=== PATIENT | male | born 1940 | race Caucasian/White ===

== ENCOUNTER 2020-11-14 21:21 | Inpatient (IN) | payer OTHER ==
[2020-11-14] MEDS ORDERED: ACETAMINOPHEN 500 MG TABLET (FP) PO ONE (21:59)
[2020-11-14 22:38] LABS: BASO % 0.1 % (0-2.0); EOS % 0.8 % (0-4.5); HEMATOCRIT 37.7 % (35.4-49); HEMOGLOBIN 12.7 GM/dL (11.7-16.9); LYMPH % 17.8 % (8-40); MCH 27.3 pg (25.7-33.7); MCHC 33.7 g/dl (32.0-35.9); MEAN CELL VOLUME 81.1 fl (80-96); MEAN PLT VOLUME 8.1 fl (7.5-11.1); MONO % 11.9 % (3.8-10.2); NEUT % 69.4 % (42.8-82.8); PLATELET COUNT 189 10^3/uL (134-434); RBC 4.65 M/mm3 (4.00-5.60); RDW 13.4 % (11.9-15.9); WHITE BLOOD COUNT 10.1 K/mm3 (4.0-10.0)
[2020-11-14] MEDS ORDERED: ACETAMINOPHEN 325 MG TABLET (FP) ONE (22:55)
[2020-11-14 22:56] LABS: PH,URINE 5.5 (5.0-8.0); URINE APPEARANCE CLEAR; URINE BILIRUBIN NEGATIVE (NEGATIVE); URINE COLOR YELLOW; URINE GLUCOSE (UA) NEGATIVE (NEGATIVE); URINE KETONE NEGATIVE (NEGATIVE); URINE LEUK ESTERASE NEGATIVE (NEGATIVE); URINE NITRITE NEGATIVE (NEGATIVE); URINE PROTEIN TRACE (NEGATIVE); URINE UROBILINOGEN 0.2 mg/dL (0.2-1.0)
[2020-11-14 22:59] LABS: CHLORIDE 107 mmol/L (98-107); SODIUM 138 mmol/L (136-145)
[2020-11-14 23:01] LABS: CALCIUM 9.4 mg/dL (8.5-10.1)
[2020-11-14 23:02] LABS: ALBUMIN 4.1 g/dl (3.4-5.0); ANION GAP 9 MMOL/L (8-16); BLOOD UREA NITROGEN 52.3 mg/dL (7-18); CO2 22 mmol/L (21-32); GLUCOSE,RANDOM 185 mg/dL (74-106)
[2020-11-14 23:05] LABS: CREATININE 2.2 mg/dL (0.55-1.3); SGOT/AST 28 U/L (15-37); SGPT/ALT 73 U/L (13-61)
[2020-11-14 23:07] LABS: BILIRUBIN,TOTAL 0.5 mg/dL (0.2-1); TOT PROT 7.6 g/dl (6.4-8.2)
[2020-11-14 23:08] LABS: ALK PHOS 145 U/L (45-117)
[2020-11-14] MEDS ORDERED: PIPERACILLIN/TAZOB 3.375 GM 3.375 GM in DEXTROSE 5%-WATER - 50 ML IVPB ONE (23:30)
[2020-11-14] MEDS ORDERED: SODIUM CHLORIDE 0.9% 500 ML INFUS.BAG IV ONE (23:30)
[2020-11-15] MEDS ORDERED: PIPERACILLIN/TAZOB 3.375 GM 3.375 GM/50 ML BAG IVPB ONE (00:19)
[2020-11-15] MEDS ORDERED: VANCOMYCIN 1 GRAM (PRE-DOCKED) 1,000 MG/250 ML BAG IVPB SCH (04:00)
[2020-11-15 04:04] LABS: URIC ACID 8.3 mg/dL (2.6-7.2)
[2020-11-15] MEDS: SODIUM CHLORIDE 1,000 ML IV SCH ×2 (04:35→23:58)
[2020-11-15] MEDS: PIPERACILLIN/TAZOB 2.25 GM 2.25 GM in DEXTROSE 5%-WATER - 50 ML IVPB SCH ×5 (05:05→16:05)
[2020-11-15] MEDS ORDERED: PIPERACILLIN/TAZOB 2.25 GM 2.25 GM/50 ML BAG IVPB ONE ×2 (05:35→13:46)
[2020-11-15 06:07] LABS: HEMATOCRIT 36.4 % (35.4-49); MCH 27.2 pg (25.7-33.7); MEAN CELL VOLUME 82.5 fl (80-96); MEAN PLT VOLUME 8.4 fl (7.5-11.1); PLATELET COUNT 177 10^3/uL (134-434); RBC 4.41 M/mm3 (4.00-5.60); RDW 13.4 % (11.9-15.9); WHITE BLOOD COUNT 8.1 K/mm3 (4.0-10.0)
[2020-11-15] MEDS ORDERED: HEPARIN NA (PORCINE) 5,000 UNITS/ML 1ML VIAL ONE ×3 (06:14→14:42)
[2020-11-15] MEDS: HEPARIN NA (PORCINE) 5,000 UNITS/ML 1ML VIAL SQ SCH ×2 (06:26→14:55)
[2020-11-15 06:30] LABS: CALCIUM 8.6 mg/dL (8.5-10.1)
[2020-11-15 06:31] LABS: ALBUMIN 3.5 g/dl (3.4-5.0); BLOOD UREA NITROGEN 42.1 mg/dL (7-18); MAGNESIUM 1.7 mg/dL (1.8-2.4)
[2020-11-15 06:34] LABS: CREATININE 2.1 mg/dL (0.55-1.3)
[2020-11-15] MEDS: INSULIN SLIDING SCALE (NOVOLOG) 1 VIAL SQ SCH ×4 (06:34→17:45)
[2020-11-15 06:35] LABS: BILIRUBIN,TOTAL 0.7 mg/dL (0.2-1)
[2020-11-15 06:36] LABS: TOT PROT 6.7 g/dl (6.4-8.2)
[2020-11-15] MEDS ORDERED: VANCOMYCIN 1 GM in D5W (PRE-DOCKED) 1,000 MG/250 ML IVPB SCH (10:00)
[2020-11-15] MEDS ORDERED: MAGNESIUM SULF 50% (8.12 MEQ/2 ML-1 GM VIAL) IVPB ONE (13:32)
[2020-11-15] MEDS ORDERED: MAGNESIUM SULFATE IN WATER 2 GM/50 ML IVPB IVPB ONE (13:46)
[2020-11-15] MEDS ORDERED: INSULIN SLIDING SCALE (NOVOLOG) 1 VIAL SQ ONE ×3 (13:58→19:00)
[2020-11-15] MEDS ORDERED: MAGNESIUM 1GM/D5W - 1 GM/100 ML IVPB IVPB ONE (14:37)
[2020-11-15] MEDS: AMPICILLIN NA/SULBACTAM NA 3 GM in SODIUM CHLORIDE 100 ML IVPB SCH (18:00)
[2020-11-16] MEDS: HEPARIN NA (PORCINE) 5,000 UNITS/ML 1ML VIAL SQ SCH ×4 (00:17→21:54)
[2020-11-16] MEDS: INSULIN (LEVEMIR) 100 UNITS/ML UNITS SQ SCH ×2 (00:18→21:59)
[2020-11-16] MEDS: INSULIN SLIDING SCALE (NOVOLOG) 1 VIAL SQ SCH ×5 (00:19→22:12)
[2020-11-16] MEDS ORDERED: INSULIN (NOVOLOG) ASPART 100 UNITS/ML 10ML VIAL ONE ×4 (00:24→21:36)
[2020-11-16] MEDS ORDERED: AMPICILLIN NA/SULBACTAM NA 3 GM VIAL ONE ×3 (01:36→18:06)
[2020-11-16] MEDS ORDERED: SODIUM CHLORIDE 100 ML IVPB ONE ×3 (01:37→18:06)
[2020-11-16] MEDS: AMPICILLIN NA/SULBACTAM NA 3 GM in SODIUM CHLORIDE 100 ML IVPB SCH ×3 (01:40→18:07)
[2020-11-16] MEDS: ACETAMINOPHEN 500 MG TABLET (FP) PO PRN ×3 (01:40→21:55)
[2020-11-16] MEDS ORDERED: PT OWN MED DRAWER 7, Y5N ONE ×2 (07:07→13:49)
[2020-11-16 08:12] LABS: CALCIUM 8.8 mg/dL (8.5-10.1)
[2020-11-16 08:13] LABS: ALBUMIN 3.3 g/dl (3.4-5.0); BLOOD UREA NITROGEN 38.8 mg/dL (7-18)
[2020-11-16 08:18] LABS: BILIRUBIN,TOTAL 0.7 mg/dL (0.2-1); TOT PROT 6.5 g/dl (6.4-8.2)
[2020-11-16] MEDS: amLODIPine BESYLATE 2.5 MG TABLET (FP) PO SCH (10:14)
[2020-11-16] MEDS: FUROSEMIDE 40 MG TABLET (FP) PO SCH (10:14)
[2020-11-16] MEDS: SODIUM CHLORIDE 1,000 ML IV SCH (10:14)
[2020-11-16] MEDS ORDERED: IRON SUCROSE INJECTION 200 MG in SODIUM CHLORIDE 90 ML IVPB ONE (10:17)
[2020-11-16 14:17] LABS: BASO % 0.2 % (0-2.0); EOS % 0.2 % (0-4.5); HEMOGLOBIN 11.9 GM/dL (11.7-16.9); LYMPH % 12.7 % (8-40); MCHC 33.1 g/dl (32.0-35.9); MEAN CELL VOLUME 81.6 fl (80-96); MEAN PLT VOLUME 8.4 fl (7.5-11.1); MONO % 9.9 % (3.8-10.2); PLATELET COUNT 193 10^3/uL (134-434); RBC 4.41 M/mm3 (4.00-5.60); RDW 13.8 % (11.9-15.9); WHITE BLOOD COUNT 10.4 K/mm3 (4.0-10.0)
[2020-11-16 14:39] LABS: CALCIUM 8.6 mg/dL (8.5-10.1)
[2020-11-16 14:40] LABS: ALBUMIN 3.4 g/dl (3.4-5.0); BLOOD UREA NITROGEN 35.3 mg/dL (7-18); MAGNESIUM 1.9 mg/dL (1.8-2.4)
[2020-11-16 14:45] LABS: BILIRUBIN,TOTAL 0.7 mg/dL (0.2-1)
[2020-11-17] MEDS ORDERED: SODIUM CHLORIDE 100 ML IVPB ONE ×4 (02:53→17:58)
[2020-11-17] MEDS ORDERED: AMPICILLIN NA/SULBACTAM NA 3 GM VIAL ONE ×4 (02:53→17:58)
[2020-11-17] MEDS: AMPICILLIN NA/SULBACTAM NA 3 GM in SODIUM CHLORIDE 100 ML IVPB SCH ×3 (02:57→17:53)
[2020-11-17] MEDS: HEPARIN NA (PORCINE) 5,000 UNITS/ML 1ML VIAL SQ SCH ×3 (06:10→21:04)
[2020-11-17] MEDS: INSULIN SLIDING SCALE (NOVOLOG) 1 VIAL SQ SCH ×4 (06:14→21:08)
[2020-11-17] MEDS: ACETAMINOPHEN 500 MG TABLET (FP) PO PRN ×2 (06:19→14:24)
[2020-11-17 09:12] LABS: BASO % 0.2 % (0-2.0); EOS % 0.9 % (0-4.5); HEMATOCRIT 32.5 % (35.4-49); LYMPH % 14.6 % (8-40); MCH 27.4 pg (25.7-33.7); MEAN CELL VOLUME 80.8 fl (80-96); MEAN PLT VOLUME 8.6 fl (7.5-11.1); MONO % 12.1 % (3.8-10.2); NEUT % 72.2 % (42.8-82.8); PLATELET COUNT 193 10^3/uL (134-434); RBC 4.02 M/mm3 (4.00-5.60)
[2020-11-17] MEDS: SODIUM CHLORIDE 1,000 ML IV SCH (09:15)
[2020-11-17 09:27] LABS: CALCIUM 8.4 mg/dL (8.5-10.1)
[2020-11-17 09:28] LABS: BLOOD UREA NITROGEN 34.2 mg/dL (7-18)
[2020-11-17 09:31] LABS: CREATININE 1.8 mg/dL (0.55-1.3)
[2020-11-17 09:32] LABS: BILIRUBIN,TOTAL 0.6 mg/dL (0.2-1)
[2020-11-17 09:33] LABS: TOT PROT 6.2 g/dl (6.4-8.2)
[2020-11-17] MEDS: FUROSEMIDE 40 MG TABLET (FP) PO SCH (10:03)
[2020-11-17] MEDS: amLODIPine BESYLATE 2.5 MG TABLET (FP) PO SCH (10:03)
[2020-11-17 17:55] VITALS: BMI 29.7
[2020-11-17] MEDS: INSULIN (LEVEMIR) 100 UNITS/ML UNITS SQ SCH (21:06)
[2020-11-18] MEDS ORDERED: AMPICILLIN NA/SULBACTAM NA 3 GM VIAL ONE ×3 (01:13→17:32)
[2020-11-18] MEDS ORDERED: SODIUM CHLORIDE 100 ML IVPB ONE ×3 (01:13→17:33)
[2020-11-18] MEDS: ACETAMINOPHEN 500 MG TABLET (FP) PO PRN (01:20)
[2020-11-18] MEDS: AMPICILLIN NA/SULBACTAM NA 3 GM in SODIUM CHLORIDE 100 ML IVPB SCH ×3 (01:20→17:45)
[2020-11-18] MEDS: HEPARIN NA (PORCINE) 5,000 UNITS/ML 1ML VIAL SQ SCH ×3 (05:47→21:32)
[2020-11-18] MEDS: INSULIN SLIDING SCALE (NOVOLOG) 1 VIAL SQ SCH ×4 (06:03→21:30)
[2020-11-18] MEDS ORDERED: PT OWN MED DRAWER 7, Y5N ONE (09:11)
[2020-11-18] MEDS: FUROSEMIDE 40 MG TABLET (FP) PO SCH (09:32)
[2020-11-18] MEDS: amLODIPine BESYLATE 2.5 MG TABLET (FP) PO SCH (09:33)
[2020-11-18 10:01] LABS: BASO % 0.3 % (0-2.0); EOS % 1.8 % (0-4.5); HEMATOCRIT 32.8 % (35.4-49); LYMPH % 20.7 % (8-40); MCH 27.5 pg (25.7-33.7); MCHC 33.6 g/dl (32.0-35.9); MEAN CELL VOLUME 81.8 fl (80-96); MEAN PLT VOLUME 8.5 fl (7.5-11.1); NEUT % 64.2 % (42.8-82.8); PLATELET COUNT 230 10^3/uL (134-434); RBC 4.01 M/mm3 (4.00-5.60); RDW 13.3 % (11.9-15.9); WHITE BLOOD COUNT 8.3 K/mm3 (4.0-10.0)
[2020-11-18 10:28] LABS: CALCIUM 8.5 mg/dL (8.5-10.1)
[2020-11-18 10:29] LABS: ALBUMIN 2.9 g/dl (3.4-5.0); BLOOD UREA NITROGEN 31.5 mg/dL (7-18); MAGNESIUM 2.1 mg/dL (1.8-2.4)
[2020-11-18 10:32] LABS: CREATININE 1.8 mg/dL (0.55-1.3)
[2020-11-18 10:34] LABS: BILIRUBIN,TOTAL 0.4 mg/dL (0.2-1)
[2020-11-18 10:35] LABS: TOT PROT 6.2 g/dl (6.4-8.2)
[2020-11-18] MEDS ORDERED: INSULIN (NOVOLOG) ASPART 100 UNITS/ML 10ML VIAL ONE (11:22)
[2020-11-18] MEDS: INSULIN (LEVEMIR) 100 UNITS/ML UNITS SQ SCH (21:31)
[2020-11-19] MEDS ORDERED: AMPICILLIN NA/SULBACTAM NA 3 GM VIAL ONE ×2 (00:51→10:26)
[2020-11-19] MEDS ORDERED: SODIUM CHLORIDE 100 ML IVPB ONE ×2 (00:51→10:26)
[2020-11-19] MEDS: AMPICILLIN NA/SULBACTAM NA 3 GM in SODIUM CHLORIDE 100 ML IVPB SCH ×2 (01:28→10:33)
[2020-11-19] MEDS: HEPARIN NA (PORCINE) 5,000 UNITS/ML 1ML VIAL SQ SCH (05:44)
[2020-11-19] MEDS: INSULIN SLIDING SCALE (NOVOLOG) 1 VIAL SQ SCH ×2 (06:21→10:36)
[2020-11-19 08:31] LABS: BASO % 0.2 % (0-2.0); EOS % 2.4 % (0-4.5); HEMATOCRIT 33.3 % (35.4-49); HEMOGLOBIN 11.3 GM/dL (11.7-16.9); LYMPH % 24.9 % (8-40); MCH 27.5 pg (25.7-33.7); MCHC 33.9 g/dl (32.0-35.9); MEAN CELL VOLUME 81.1 fl (80-96); MONO % 12.7 % (3.8-10.2); NEUT % 59.8 % (42.8-82.8); PLATELET COUNT 257 10^3/uL (134-434); RBC 4.11 M/mm3 (4.00-5.60); RDW 13.2 % (11.9-15.9); WHITE BLOOD COUNT 7.8 K/mm3 (4.0-10.0)
[2020-11-19 08:57] LABS: CALCIUM 8.5 mg/dL (8.5-10.1); MAGNESIUM 1.9 mg/dL (1.8-2.4)
[2020-11-19 09:02] LABS: BILIRUBIN,TOTAL 0.6 mg/dL (0.2-1); TOT PROT 6.6 g/dl (6.4-8.2)
[2020-11-19] MEDS: amLODIPine BESYLATE 2.5 MG TABLET (FP) PO SCH (10:34)
[2020-11-19] MEDS: FUROSEMIDE 40 MG TABLET (FP) PO SCH (10:34)
[2020-11-19 11:45] VITALS: BP 149/89; PULSE 82; TEMP 98.6
== END 2020-11-19 14:33 | disposition home or self-care (01) | DRG 872 ==
LOC: JER 21:21 → JERBED 11-15 00:22 → J8W 11-15 23:33
PROVIDERS: ADMIT Internal Medicine; ATTEND Nurse Practitioner Acute Care
DX: A41.9 Sepsis, unspecified organism (principal); L03.113 Cellulitis of right upper limb; E11.65 Type 2 diabetes mellitus with hyperglycemia; E11.22 Type 2 diabetes mellitus with diabetic chronic kidney disease; I12.9 Hypertensive chronic kidney disease with stage 1 through stage 4 chronic kidney disease, or unspecified chronic kidney disease; K80.20 Calculus of gallbladder without cholecystitis without obstruction; Z79.4 Long term (current) use of insulin; N18.9 Chronic kidney disease, unspecified
CPT/HCPCS: 36415; 71045-TC-FY; 76700-TC; 78226-TC; 80053; 80074; 81003; 82550; 82553; 82570; 82962; 82977; 83036; 83540; 83550; 83605; 83735; 83970; 84100; 84156; 84484; 84550; 85025; 85027; 85651; 86038; 86140; 86431; 86618; 86704; 86705; 86706; 86708; 86803; 87040; 87086; 87207; 87340; 87517; 87804; 93005; 93010; 93306-TC; 99285-25; A9537; C9803; J1644; J1756; U0003; U0005

== ENCOUNTER 2021-11-06 12:29 | Emergency (ER) | payer OTHER ==
[2021-11-06 12:53] VITALS: PULSE 70; TEMP 98.2; BMI 29.0
[2021-11-06 16:07] VITALS: BP 148/75; RESP 18
== END 2021-11-06 16:07 | disposition home or self-care (01) ==
LOC: JER 12:29
DX: S86.111A Strain of other muscle(s) and tendon(s) of posterior muscle group at lower leg level, right leg, initial encounter (principal); S86.011A Strain of right Achilles tendon, initial encounter; W01.0XXA Fall on same level from slipping, tripping and stumbling without subsequent striking against object, initial encounter
CPT/HCPCS: 73610-TC-RT-FY; 99283-25

== ENCOUNTER 2022-08-11 12:01 | Emergency (ER) | payer OTHER ==
[2022-08-11 12:06] VITALS: BP 155/81; PULSE 101; RESP 18; TEMP 100.9; BMI 27.3
[2022-08-11] MEDS ORDERED: SODIUM CHLORIDE 0.9% 500 ML INFUS.BAG IV ONE ×2 (12:29→13:46)
[2022-08-11] MEDS ORDERED: ALBUTEROL SO4 2.5/IPRATROPIUM 0.5 INH SOL 3 ML VIAL.NEB. NEB ONE (12:51)
[2022-08-11 12:56] LABS: BASO % 0.7 % (0-2.0); EOS % 1.7 % (0-4.5); HEMATOCRIT 41.3 % (35.4-49); HEMOGLOBIN 13.7 GM/dL (11.7-16.9); LYMPH % 9.7 % (8-40); MCH 27.2 pg (25.7-33.7); MCHC 33.3 g/dl (32.0-35.9); MEAN CELL VOLUME 81.7 fl (80-96); MEAN PLT VOLUME 8.2 fl (7.5-11.1); MONO % 10.3 % (3.8-10.2); NEUT % 77.6 % (42.8-82.8); PLATELET COUNT 222 10^3/uL (134-434); RBC 5.06 M/mm3 (4.00-5.60); RDW 14.4 % (11.9-15.9); WHITE BLOOD COUNT 9.6 K/mm3 (4.0-10.0)
[2022-08-11] MEDS: ALBUTEROL SO4 2.5/IPRATROPIUM 0.5 INH SOL 3 ML VIAL.NEB. NEB SCH ×2 (12:58→13:15)
[2022-08-11 13:02] LABS: INR 1.19 (0.83-1.09); PROTHROMBIN TIME (PATIENT) 13.8 SEC (9.7-13.0)
[2022-08-11 13:05] LABS: ACTIVATED PTT 33.3 SECONDS (25.2-36.5)
[2022-08-11 13:14] LABS: CHLORIDE 105 mmol/L (98-107); POTASSIUM 4.8 mmol/L (3.5-5.1); SODIUM 134 mmol/L (136-145)
[2022-08-11 13:16] LABS: CALCIUM 8.7 mg/dL (8.5-10.1)
[2022-08-11 13:17] LABS: ALBUMIN 3.2 g/dl (3.4-5.0); ANION GAP 5 MMOL/L (8-16); BLOOD UREA NITROGEN 32.2 mg/dL (7-18); CO2 24 mmol/L (21-32); GLUCOSE,RANDOM 289 mg/dL (74-106); MAGNESIUM 1.8 mg/dL (1.8-2.4)
[2022-08-11 13:20] LABS: CREATININE 2.2 mg/dL (0.55-1.3); SGOT/AST 30 U/L (15-37); SGPT/ALT 34 U/L (13-61)
[2022-08-11 13:22] LABS: BILIRUBIN,TOTAL 0.3 mg/dL (0.2-1); TOT PROT 6.9 g/dl (6.4-8.2)
[2022-08-11 13:23] LABS: ALK PHOS 148 U/L (45-117)
[2022-08-11 13:25] LABS: N-TERMINAL BNP 282.4 pg/ml (5-450)
[2022-08-11] MEDS ORDERED: METOCLOPRAMIDE HCL INJECTION 10 MG/2 ML VIAL IVPB ONE (14:08)
== END 2022-08-11 14:48 | disposition home or self-care (01) ==
LOC: JER 12:01
PROC: 3E033NZ Introduction of Analgesics, Hypnotics, Sedatives into Peripheral Vein, Percutaneous Approach (ICD-10-PCS; principal; 2022-08-11)
PROC: 3E033GC Introduction of Other Therapeutic Substance into Peripheral Vein, Percutaneous Approach (ICD-10-PCS; 2022-08-11)
DX: R07.89 Other chest pain (principal); R50.9 Fever, unspecified; J10.1 Influenza due to other identified influenza virus with other respiratory manifestations; Z20.822 Contact with and (suspected) exposure to COVID-19
CPT/HCPCS: 0241U-QW; 36415; 71046-TC-FY; 80053; 82550; 82553; 82962; 83735; 83880; 84484; 85025; 85610; 85730; 93005; 93010; 96374; 96375; 99285-25